=== PATIENT | female | born 1975 | race Two or more races ===

== ENCOUNTER 2017-08-21 09:16 | Outpatient (CLI) | payer OTHER | END 2017-08-21 09:30 | disposition home or self-care (01) | LOC: MAMO-SONO 09:16 | DX: N60.11 Diffuse cystic mastopathy of right breast (principal); N60.12 Diffuse cystic mastopathy of left breast; N92.6 Irregular menstruation, unspecified; Z12.31 Encounter for screening mammogram for malignant neoplasm of breast ==